=== PATIENT | female | born 2005 | race Caucasian/White ===

== ENCOUNTER 2025-06-05 23:41 | Emergency (ER) | payer MEDICAID ==
[~2025-06-05] VITALS: Ht 162.6 cm; Wt 54.7 kg
[2025-06-05 23:48] VITALS: O2SAT 99
[2025-06-06 00:55] LABS: CLARITY URINE CLOUDY (CLEAR); COLOR URINE YELLOW (YELLOW); GLUCOSE URINE NEGATIVE (NEGATIVE); KETONES URINE TRACE (NEGATIVE); LEUKOCYTE ESTERASE URINE 3+ (NEGATIVE); NITRITE URINE POSITIVE (NEGATIVE); OCCULT BLOOD URINE 1+ (NEGATIVE); PH URINE 6.5 (4.5-8.0); PROTEIN URINE NEGATIVE (NEGATIVE); SPECIFIC GRAVITY URINE 1.018 (1.005-1.030); UROBILINOGEN URINE 0.2 E.U./dL (0.2-1.0)
[2025-06-06] MEDS ORDERED: CEPH500T MT (01:01)
[2025-06-06 01:49] LABS: SQUAMOUS EPITHELIAL CELL URINE FEW /lpf (RARE/1+); WBC URINE 25-50 /hpf (0-2)
[2025-06-06 01:50] LABS: BACTERIA URINE 4+; RBC URINE 0-2 /hpf (0-2)
[2025-06-06 02:00] VITALS: BP 145/110; PULSE 101; RESP 20; TEMP 36.7; O2SAT 98
== END 2025-06-06 02:07 | disposition home or self-care (01) ==
LOC: ER 23:41
DX: N39.0 Urinary tract infection, site not specified (principal); F31.9 Bipolar disorder, unspecified; Z88.1 Allergy status to other antibiotic agents; Z79.899 Other long term (current) drug therapy
CPT/HCPCS: 81025; 99284; 81003; 87086; 87186; 87210; 87077; Z7610